=== PATIENT | female | born 1970 | race African-American/Black ===

== ENCOUNTER 2017-04-30 11:43 | Emergency (ER) | payer SELFPAY ==
[~2017-04-30] VITALS: Ht 165.1 cm; Wt 129.3 kg
[~2017-04-30 11:43] MED LIST: CYCL10TA2 PO; IBUP-1007 PO; NAPR500T PO; TRAM-48 PO
[2017-04-30 12:19] VITALS: BP 152/75
[2017-04-30] MEDS ORDERED: CYCL10TA2 PO (12:45)
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
== END 2017-04-30 12:50 | disposition home or self-care (01) ==
LOC: ER 11:43
DX: M54.42 Lumbago with sciatica, left side (principal); M54.41 Lumbago with sciatica, right side; E66.9 Obesity, unspecified; Z68.42 Body mass index [BMI] 45.0-49.9, adult
CPT/HCPCS: 99283